=== PATIENT | female | born 1985 | race Caucasian/White ===

== ENCOUNTER 2017-08-11 20:05 | Emergency (ER) | payer BC, OTHER ==
[2017-08-11 20:11] VITALS: BP 140/68; PULSE 76; RESP 16; TEMP 98; O2SAT 100
--- NOTE | 2017-08-11 21:51 | ED PDOC ---
Lower Extremity Pain/Injury Time Seen by Provider: 08/11/17 20:25 Chief Complaint (Nursing): Lower Extremity Problem/Injury Chief Complaint (Provider): Left calf pain for 3 weeks, intermittent History Per: Patient History/Exam Limitations: no limitations Onset/Duration Of Symptoms: Days Current Symptoms Are (Timing): Still Present Additional Complaint(s): Pt denies trauma. Reports pain intermittent. Past Medical History Reviewed: Historical Data, Nursing Documentation, Vital Signs Vital Signs: Last Vital Signs Temp 98 F 08/11/17 20:08 Pulse 76 08/11/17 20:08 Resp 16 08/11/17 20:08 BP 140/68 08/11/17 20:08 Pulse Ox 100 08/11/17 20:08 - Medical History PMH: No Chronic Diseases - Surgical History Surgical History: No Surg Hx - Family History Family History: States: No Known Family Hx - Living Arrangements Living Arrangements: With Family - Social History Current smoker - smoking cessation education provided: No Alcohol: None Drugs: Denies - Home Medications Home Medications: Ambulatory Orders Medication Instructions Recorded Naproxen [Naprosyn] 500 mg PO Q12H #20 tab 07/17/14 Ibuprofen [Motrin] 600 mg PO Q8 PRN #20 tab 10/02/14 Ciprofloxacin HCl [Cipro] 500 mg PO ONCE #1 tab 12/29/14 - Allergies Allergies/Adverse Reactions: Allergies Allergy/AdvReac Type Severity Reaction Status Date / Time No Known Allergies Allergy Verified 07/17/14 06:56 Review of Systems ROS Statement: Except As Marked, All Systems Reviewed And Found Negative Constitutional: Negative for: Fever, Chills Musculoskeletal: Positive for: Leg Pain Physical Exam - Reviewed Nursing Documentation Reviewed: Yes Vital Signs Reviewed: Yes - Physical Exam Appears: Positive for: Well, Non-toxic, No Acute Distress Head Exam: Positive for: ATRAUMATIC, NORMAL INSPECTION, NORMOCEPHALIC Skin: Positive for: Normal Color, Warm, DRY Eye Exam: Positive for: Normal appearance ENT: Positive for: Normal ENT Inspection Neck: Positive for: Normal, Painless ROM Respiratory: Negative for: Accessory Muscle Use, Respiratory Distress Back: Positive for: Normal Inspection Extremity: Positive for: Normal ROM, Tenderness, Calf Tenderness (Lef calf ), Capillary Refill Neurologic/Psych: Positive for: Alert, Oriented - ECG O2 Sat by Pulse Oximetry: 100 Disposition - Clinical Impression Clinical Impression: Pain of left calf - Patient ED Disposition Is Patient to be Admitted: No - Disposition Disposition: Routine/Home Disposition Time: 21:35 Condition: GOOD Instructions: Musculoskeletal Pain (ED)
--- NOTE | 2017-08-12 11:51 | US ---
HISTORY: left calf pain . PRIORS: None. FINDINGS: 2-D, color and duplex Doppler analysis of the lower extremity venous circulation using routine protocol from the femoral veins through the popliteal veins. Venous compressibility: Normal. Flow and augmentation patterns: Normal. Visualized veins upper third of calf: Normal. Barksdale cyst: None. IMPRESSION: No sonographic or Doppler evidence for DVT in left lower extremity.
== END 2017-08-11 21:44 | disposition home or self-care (01) ==
LOC: H.ER 20:05
DX: M79.662 Pain in left lower leg (principal)

== ENCOUNTER 2017-09-07 16:13 | Emergency (ER) | payer BC, OTHER ==
[2017-09-07 16:20] VITALS: BP 142/93; PULSE 93; RESP 18; TEMP 98.9; O2SAT 98
--- NOTE | 2017-09-07 16:53 | ED PDOC ---
HPI: CCC, URI, Sore Throat Time Seen by Provider: 09/07/17 16:34 Chief Complaint (Nursing): Flu-like Symptoms Chief Complaint (Provider): Cough, bodyaches History Per: Patient History/Exam Limitations: no limitations Have you had recent travel within the past 21 days to any of the following countries: [place], [place], [place] or [place]?: No Onset/Duration Of Symptoms: Days (4) Current Symptoms Are (Timing): Still Present Location Of Pain: Diffuse Myalgias, Headache Associated Symptoms: Cough, Myalgias Additional History Per: Patient Additional Complaint(s): 32yo female, presents to ED with complaints of cough, congtestion and headache for the past 4 days. She states she feels hot but denies any fever; patient states she has been taking Motrin and Sudafed for her symptoms. She also reports associated back pain and chest tightness. She denies any chest pain, shortness of breath. She has no other medical complaints. Past Medical History Reviewed: Historical Data, Nursing Documentation, Vital Signs Vital Signs: Last Vital Signs Temp 98.9 F 09/07/17 16:15 Pulse 93 H 09/07/17 16:15 Resp 18 09/07/17 16:15 BP 142/93 H 09/07/17 16:15 Pulse Ox 98 09/07/17 16:55 - Medical History PMH: No Chronic Diseases - Surgical History Surgical History: No Surg Hx - Family History Family History: States: No Known Family Hx - Home Medications Home Medications: Ambulatory Orders Medication Instructions Recorded Naproxen [Naprosyn] 500 mg PO Q12H #20 tab 07/17/14 Ibuprofen [Motrin] 600 mg PO Q8 PRN #20 tab 10/02/14 Ciprofloxacin HCl [Cipro] 500 mg PO ONCE #1 tab 12/29/14 Albuterol HFA [Ventolin HFA 90 1 puff IH BID PRN #1 unit 09/07/17 mcg/actuation (8 g)] - Allergies Allergies/Adverse Reactions: Allergies Allergy/AdvReac Type Severity Reaction Status Date / Time No Known Allergies Allergy Verified 07/17/14 06:56 Review of Systems ROS Statement: Except As Marked, All Systems Reviewed And Found Negative Constitutional: Positive for: Fever (feels hot but no fever when taking temperature), Malaise Cardiovascular: Positive for: Other (chest tightness). Negative for: Chest Pain Respiratory: Positive for: Cough. Negative for: Shortness of Breath Musculoskeletal: Positive for: Back Pain Physical Exam - Reviewed Nursing Documentation Reviewed: Yes Vital Signs Reviewed: Yes - Physical Exam Appears: Positive for: Non-toxic, No Acute Distress Head Exam: Positive for: ATRAUMATIC, NORMAL INSPECTION, NORMOCEPHALIC Skin: Positive for: Normal Color Eye Exam: Positive for: Normal appearance Neck: Positive for: Supple Cardiovascular/Chest: Positive for: Regular Rate, Rhythm Respiratory: Positive for: Normal Breath Sounds. Negative for: Respiratory Distress Back: Positive for: Normal Inspection Neurologic/Psych: Positive for: Alert, Oriented. Negative for: Motor/Sensory Deficits - ECG O2 Sat by Pulse Oximetry: 98 (RA) Pulse Ox Interpretation: Normal Medical Decision Making Medical Decision Making: Impression: Flu like symptoms Plan: -- Based on onset of symptoms, patient is not a candidate for Tamiflu. Patient informed to increase fluid intake and to take Tylenol or Motrin as needed for fever. Stable for discharge home. Scribe Attestation: Documented by Kimber De La Rosa acting as a scribe for LANA Faye Provider Attestation: All medical record entries made by the Scribe were at my direction and personally dictated by me. I have reviewed the chart and agree that the record accurately reflects my personal performance of the history, physical exam, medical decision making, and the department course for this patient. I have also personally directed, reviewed, and agree with the discharge instructions and disposition. Disposition - Clinical Impression Clinical Impression: Influenza - Patient ED Disposition Is Patient to be Admitted: No - Disposition Disposition: Routine/Home Disposition Time: 16:55 Condition: STABLE Prescriptions: Albuterol HFA [Ventolin HFA 90 mcg/actuation (8 g)] 1 puff IH BID PRN #1 unit PRN Reason: chest congestion Instructions: Influenza (ED) Forms: [employer] (Sinhala), [facility] ED School/Work Excuse
== END 2017-09-07 17:03 | disposition home or self-care (01) ==
LOC: H.ER 16:13
DX: J11.1 Influenza due to unidentified influenza virus with other respiratory manifestations (principal)

== ENCOUNTER 2017-12-12 22:48 | Emergency (ER) | payer OTHER ==
[2017-12-12 23:49] VITALS: BP 123/84; PULSE 69; RESP 18; TEMP 98; O2SAT 97
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
== END 2017-12-13 00:25 | disposition home or self-care (01) ==
LOC: H.ER 22:48
DX: S51.831A Puncture wound without foreign body of right forearm, initial encounter (principal); Y04.1XXA Assault by human bite, initial encounter; Y99.0 Civilian activity done for income or pay

== ENCOUNTER 2018-09-11 20:15 | Emergency (ER) | payer OTHER ==
[2018-09-11 20:19] VITALS: RESP 16
[2018-09-11] MEDS ORDERED: Oxycodone/Acetaminophen 5/325 mg Tab PO STA (21:30)
[2018-09-11] MEDS ORDERED: Oxycodone/Acetaminophen 5/325 mg Tab ONE ×2 (21:47→21:56)
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
[2018-09-12 00:58] VITALS: BP 118/72; PULSE 60; TEMP 98.3
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
[2018-09-14 09:59] VITALS: O2SAT 97
== END 2018-09-12 00:40 | disposition home or self-care (01) ==
LOC: H.ER 20:15
DX: S82.142A Displaced bicondylar fracture of left tibia, initial encounter for closed fracture (principal); W19.XXXA Unspecified fall, initial encounter; Y92.89 Other specified places as the place of occurrence of the external cause